=== PATIENT | female | born 1985 ===

== ENCOUNTER 2025-01-17 10:30 | Outpatient (AMB) | payer OTHER, SELFPAY ==
[2025-01-17 11:00] VITALS: BP 106/64; PULSE 60; TEMP 36.8; O2SAT 98; BMI 25.4
--- NOTE | 2025-01-17 11:00 | AM.OFFWIN_ITS ---
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 Intake Note: presents with swelling, redness and pain to right calf after a bee sting 2 days ago Allergies No Known Allergies Allergy (Verified 01/17/25 11:01) Do you need a note to return to daycare/school/sports/work: Yes HPI HPI Comments History of Present Illness Details History - The patient is a 39-year-old female pr esenting with swelling and warmth in the lower extremity following an insect bite. - He was stung by a been in the right po sterior calf on Thursday. - The issue began on Thursday night when t he patient woke up with discomfort in the calf area. - The swelling and redness has progresse d from a localized area to involve more of the lower extremity. - The patient denies any fever, tingling in the mouth, or shortness of breath. - The patient was previously on doxycycl ine for tick bites approximately three to four months ago. - He denies fever, chills, SOB, wheezing , joint pain, rashes or other bites. Physical Exam General: Cooperative, healthy appearing, comfortable, no acute distress and well developed Orientation: Patient oriented x3 Limitations: No limitations Respiratory: Normal respiratory effort and able to speak in complete sentences. Clear to auscultation bilaterally. No w/r/r noted. Cardiovascular: RRR, no m/r/g noted. Normal S1 and S2 Skin: Erythema and warmth noted on the right posterior calf with mild swelling noted. No induration noted. No streaking noted. No bleeding or drainage noted. Patient was informed and verbally consented to the use of an ambient scribe for clinic note documentation during this visit Review of Systems Const All systems reviewed & are unremarkable except as noted in HPI and below Physical Exam Vital Signs: Last Vital Signs Temp 98.3 F 01/17/25 11:00 Pulse 60 01/17/25 11:00 BP 106/64 01/17/25 11:00 Pulse Ox 98 01/17/25 11:00 Oxygen Delivery Method Room Air 01/17/25 11:00 BMI result Body Mass Index 25.4 Assessment & Plan Assessment & Plan (1) Cellulitis of right lower leg: Code(s): L03.115 - Cellulitis of right lower limb (2) Bee sting: Code(s): T63.441A - Toxic effect of venom of bees, accidental (unintentional), initial encounter Qualifiers: Encounter type: initial encounter Injury intent: accidental or unintentional Qualified Code(s): T63.441A - Toxic effect of venom of bees, accidental (unintentional), initial encounter Plan Most likely cellulitis after a bee sting Plan - tylenol or motrin as needed for pain or fevers - Prescribed Keflex for 10 days to address the infection. - Advised to monitor for fever and worsening redness, which would necessitate a change in antibiotics. - Instructed to observe for improvement within 24 hours. Medications: New cephalexin 500 mg PO Q6H PRN 28 caps 0RF cellulitis 10 days Coding Level of Care Code Est Pt Level 3 (81241) Diagnoses Cellulitis of right lower leg L03.115 Bee sting, accidental or unintentional, initial encounter T63.441A Encounter type: initial encounter Injury intent: accidental or unintentional
--- OUTSIDE RECORDS SUMMARY | 2025-01-17 11:53 | XMS_ITS | Clinical Summary ---
Author Organization [facility]: [facility] Address [address] [place] [address] Care Team Providers Care Maintenance Of Way Supervisor Name Role Phone Pcp, No MD Primary Care Provider Unavailabl e Allergies No known active allergies Medications No known medications Encounters Date Type Department Care Team Description 10/22/2024 Results Follow-Up [facility] [place] [address] Mimi Gale RN Babesia Microti DNA, Real Time PCR (REF), Anaplasma Phagocytophilum DNA, QL Real Time PCR (REF), Ehrlichia Chaffeensis PCR (Human Monocytic Ehrlichiosis, HME) 10/20/2024 2:31 PM EDT - 10/20/2024 3:16 PM EDT Hospital Encounter [facility] at [address] [address] Sergio Rouse DO Tick bite, unspecified site, initial encounter (Primary Dx) Discharge Disposition: Routine Discharge Home from Last 3 Months Social History Tobacco Use Types Packs/Day Years Used Date Smoking Tobacco: Never Smokeless Tobacco: Never Tobacco Cessation:Counseling Given: Not Answered Alcohol Use Standard Drinks/Week Comments Yes 2 (1 standard drink = 0.6 oz pur e alcohol) Sex and Gender Information Value Date Recorded Sex Assigned at Not on file Legal Sex Male 2:23 PM EDT Gender Identity Not on file Sexual Orientation Not on file Last Filed Vital Signs Vital Sign Reading Time Taken Comments Blood Pressure 122/82 10/20/2024 2:40 PM EDT Pulse 70 10/20/2024 2:40 PM EDT Temperature 37 C (98.6 F) 10/20/2024 2:40 PM EDT Respiratory Rate 12 10/20/2024 2:40 PM EDT Oxygen Saturation 98% 10/20/2024 2:40 PM EDT Inhaled Oxygen Concentration - - Weight - - Height - - Body Mass Index - - Plan of Treatment Not on file Procedures Procedure Name Priority Date/Time Associated Diagnosis Comments BLOOD PARASITE SMEAR STAT 10/20/2024 3:10 PM EDT EHRLICHIA CHAFFEENSIS DNA REAL TIME PCR (REF) STAT 10/20/2024 3:10 PM EDT ANAPLASMA PHAGOCYTOPHILUM DNA, QL REAL TIME PCR (REF) STAT 10/20/2024 3:10 PM EDT BABESIA MICROTI DNA, REAL TIME PCR (REF) STAT 10/20/2024 3:10 PM EDT LYME ANTIBODIES STAT 10/20/2024 3:10 PM EDT from Last 3 Months Results * Ehrlichia Chaffeensis PCR (Human Monocytic Ehrlichiosis, HME) (10/20/2024 3:10 PM EDT) Pathologist [facility] Ehrlichia chaffeensis DNA Real Time PCR - [facility] NOT DETECTED NOT DETECTED 10/21/2024 3:16 PM EDT [facility] Comment: This test was developed and its analytical performance characteristics have been determined by [facility]. It has not been cleared or approved by the FDA. This assay has been validated pursuant to the CLIA regulations and is used for clinical purposes. Blood ENTIRE ANTECUBITAL VEIN / Unknown Venipuncture / Unknown 10/20/2024 3:10 PM EDT 10/20/2024 3:11 PM EDT Narrative [facility] - 10/21/2024 3:16 PM EDT Performing Organization Information: Site ID: [id number] Name: [facility] Address: [address] [place] [phone] Director: Jennifer Polk M.D. [facility] ORDKishan MARTINEZ Final Result Performing Organization Address City/[facility]/ZIP Co de Phone Number [facility] [address] [place] [address] * Babesia Microti DNA, Real Time PCR (REF) (10/20/2024 3:10 PM EDT) Babesia Microti DNA, Real Time PCR - [facility] NOT DETECTED NOT DETECTED 10/21/2024 3:13 PM EDT [facility] Comment: This test was developed and its analytical performance characteristics have been determined by [facility]. It has not been cleared or approved by the FDA. This assay has been validated pursuant to the CLIA regulations and is used for clinical purposes. Blood ENTIRE ANTECUBITAL VEIN / Unknown Venipuncture / Unknown 10/20/2024 3:10 PM EDT 10/20/2024 3:14 PM EDT Narrative [facility] - 10/21/2024 3:13 PM EDT Performing Organization Information: Site ID: [id number] Name: [facility] Address: [address] [place] [phone] Director: Jennifer Polk M.D. [facility]LEC[facility] DI[facility]NOSTICS ORDKishan MARTINEZ Final Result Performing Organization Address [facility] Co de Phone Number [facility] [address] [place] [address] * Anaplasma Phagocytophilum DNA, QL Real Time PCR (REF) (10/20/2024 3:10 PM EDT) Anaplasma phagocytophilum Dna, Ql Real Time Pcr - [facility] NOT DETECTED NOT DETECTED 10/21/2024 3:12 PM EDT [facility] Comment: This test was developed and its analytical performance characteristics have been determined by [facility]. It has not been cleared or approved by the FDA. This assay has been validated pursuant to the CLIA regulations and is used for clinical purposes. Blood ENTIRE ANTECUBITAL VEIN / Unknown Venipuncture / Unknown 10/20/2024 3:10 PM EDT 10/20/2024 3:11 PM EDT Narrative [facility] - 10/21/2024 3:12 PM EDT Performing Organization Information: Site ID: [id number] Name: [facility] Address: [address] [place] [phone] Director: Jennifer Polk M.D. [facility] [place] [facility] DI[facility]ST[facility] ORDE RABLES Final Result Performing Organization Address City/[facility]/ZIP Co de Phone Number [facility] [address] [place] [address] * Blood parasite smear (10/20/2024 3:10 PM EDT) Thin Smear No Parasite Seen No Parasite Seen 10/21/2024 11:58 AM EDT [facility] Thick Smear No Parasite Seen No Parasite Seen 10/21/2024 11:58 AM EDT [facility] Blood ENTIRE ANTECUBITAL VEIN / Unknown Venipuncture / Unknown 10/20/2024 3:10 PM EDT 10/20/2024 3:11 PM EDT [facility] BLOOD ORDERABLES Final Res ult Performing Organization Address [facility] Co de Phone Number [facility] [address] [place] [address] * Lyme Antibodies with Reflex (10/20/2024 3:10 PM EDT) Lyme Antibodies Negative Negative 11:21 AM EDT [facility] Comment: Lyme Antibodies, Negative: Lyme antibodies not detected. Reflex testing is not indicated. No laboratory evidence of infection with B.burgdorferi (Lyme disease). Negative results may occur in patients recently infected (less than or equal to 14 days) with B.burgdorferi. If recent infection is suspected, repeat testing on a new sample collected in 7 to 14 days is recommended. Blood ENTIRE ANTECUBITAL VEIN / Unknown Venipuncture / Unknown 10/20/2024 3:10 PM EDT 10/20/2024 3:11 PM EDT [facility] BLOOD ORDERABLES Final Res ult [facility] [address] [place] [address] from Last 3 Months Insurance [employer] [facility] [employer] Maintenance Of Way Supervisor Relationship Specialty Start Date End Date PcpTiana MD PCP - General Generic/Test/No PCP 10/20/24
== END 2025-01-17 12:40 | disposition home or self-care (01) ==
PROVIDERS: Visit Provider Physician Assistant Medical
DX: L03.115 Cellulitis of right lower limb (principal); T63.441A Toxic effect of venom of bees, accidental (unintentional), initial encounter

== ENCOUNTER → 2025-01-17 10:30 | Outpatient (BNVA) | payer OTHER, SELFPAY | PROVIDERS: Visit Provider Physician Assistant Medical | DX: L03.115 Cellulitis of right lower limb (principal); T63.441D Toxic effect of venom of bees, accidental (unintentional), subsequent encounter | CPT/HCPCS: 99212 ==